=== PATIENT | male | born 1990 | race Caucasian/White ===

== ENCOUNTER 2019-07-29 22:22 | Emergency (ER) | payer OTHER ==
[~2019-07-29] VITALS: Ht 167.6 cm; Wt 63.3 kg
[2019-07-29] MEDS ORDERED: IV NORMAL SALINE 1,000ML 1,000 ML IV ONE (23:00)
--- NOTE | 2019-07-29 23:10 | PHYS DOC ---
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 Patient reports taking 3 Unisom sleep gels at approximately 1800 tonight to sleep. Patient denies any self-harm ideation or attempt. Denies any homicidal ideation. Denies any other coingestants. Patient normally takes one to one and a half Unisom tablets and lately they have not been working. Patient reports seeing "invisible snakes" along the wall after taking the Unisom sleep gels.[] Review of Systems Review of Systems Constitutional: Denies fever or chills [] Eyes: Denies change in visual acuity, redness, or eye pain [] HENT: Denies nasal congestion or sore throat [] Respiratory: Denies cough or shortness of breath [] Cardiovascular: No chest pain or palpitations[] GI: Denies abdominal pain, nausea, vomiting, bloody stools or diarrhea [] : Denies dysuria or hematuria [] Musculoskeletal: Denies back pain or joint pain [] Integument: Denies rash or skin lesions [] Neurologic: Denies headache, focal weakness or sensory changes [] Endocrine: Denies polyuria or polydipsia [] All other systems were reviewed and found to be within normal limits, except as documented in this note. Current Medications Current Medications Current Medications Medications (Trade) Dose Ordered Sig/[facility] Start Time Stop Time Status Last Admin Dose Admin Sodium Chloride 1,000 ml @ 1,000 mls/hr 1X ONCE 07/29/19 23:00 07/29/19 23:59 UNV Physical Exam Physical Exam Constitutional: Well developed, well nourished, no acute distress, non-toxic appearance. [] HENT: Normocephalic, atraumatic, bilateral external ears normal, oropharynx moist, no oral exudates, nose normal. [] Eyes: PERRLA, EOMI, conjunctiva normal, no discharge. No mydriasis [] Neck: Normal range of motion, no tenderness, supple, no stridor. [] Cardiovascular:Heart rate is tachycardic with a regular rhythm, no murmur [] Lungs & Thorax: Bilateral breath sounds clear to auscultation [] Abdomen: Bowel sounds normal, soft, no tenderness, no masses, no pulsatile masses. [] Skin: Warm, dry, no erythema, no rash. [] Back: No tenderness, no CVA tenderness. [] Extremities: No tenderness, no cyanosis, no clubbing, ROM intact, no edema. [] Neurologic: Alert and oriented X 3, normal motor function, normal sensory function, no focal deficits noted. He has a generalized body tremor which does not affect his ability to move all 4 extremities. [] Psychologic: Affect normal, judgement normal, mood normal. [] EKG EKG EKG shows a sinus tachycardia at 119 bpm, normal axis, QRS at 96 ms, QTC of 440 ms. Interpreted by me at 2321[] Radiology/Procedures Radiology/Procedures Verbal chest x-ray shows no evidence of an infiltrate, no effusion, no pneumothorax[] Course & Med Decision Making Course & Med Decision Making Pertinent Labs and Imaging studies reviewed. (See chart for details) ED course and medical decision making: Patient arrived, was placed in bed, and tolerated exam well. Consultation was made with poison control who agree that this does not appear to be a life-threatening overdose of the Unisom sleep gel which contains doxylamine. Unfortunately the half-life is tender 12 hours. The recommendation was for hydration either orally or through the IV. Additionally some mild benzodiazepines for the agitation/hallucination. They agreed with the laboratory testing that was ordered. Since this was not a overdose for self- harm, aspirin and acetaminophen levels were not obtained. His heart rate improved with IV fluids. Findings were discussed with patient who voiced understanding. All questions were answered. He was discharged in improved condition. [] Dragon Disclaimer Dragon Disclaimer This electronic medical record was generated, in whole or in part, using a voice recognition dictation system. Departure Departure: Impression: Primary Impression: Anticholinergic syndrome Disposition: HOME, SELF-CARE Condition: IMPROVED Referrals: JORGE LUIS CARMEN PA-C (PCP) Follow-up tomorrow Patient Instructions: Nontoxic Ingestion Additional Instructions: Follow-up with sick call tomorrow. Use medications only as prescribed. Return to the ER if worsening discomfort or any other concerns. Problem Qualifiers Primary Impression: Anticholinergic syndrome Encounter type: initial encounter Injury intent: accidental or unintentional Qualified Codes: T44.3X1A - Poisoning by other parasympatholytics [anticholinergics and antimuscarinics] and spasmolytics, accidental (unintentional), initial encounter AMARIS CRANE DO Jul 29, 2019 23:10
--- NOTE | 2019-07-29 23:22 | EKG ---
[address] [address] Test Date: 2019-07-29 Test Time: 23:22:40 Pat Name: CAREY ALVARADO Department: Room: Gender: M F[employer] Planter: : 1990 Requested By: AMARIS CRANE Order Number: [id number] Reading MD: Measurements Intervals [place] Rate: 119 P: 24 UT: 156 QRS: 36 QRSD: 96 T: 14 QT: 308 QTc: 440 Interpretive Statements SINUS TACHYCARDIA OTHERWISE NORMAL ECG RI6.01 No previous ECG available for comparison
[2019-07-29 23:25] LABS: BASO % 0 % (0-3); EOS % 0 % (0-3); HEMATOCRIT 46.4 % (39.0-53.0); HEMOGLOBIN 15.5 g/dL (13.0-17.5); LYMPH # 1.1 x10^3/uL (1.0-4.8); LYMPH % 7 % (24-48); MEAN CORPUSCULAR HEMOGLOBIN 31 pg (25-35); MEAN CORPUSCULAR HGB CONC 33 g/dL (31-37); MEAN CORPUSCULAR VOLUME 92 fL (79-100); MONO # 1.1 x10^3/uL (0.0-1.1); MONO % 7 % (0-9); NEUT # 13.4 x10^3uL (1.8-7.7); NEUT % 86 % (31-73); PLATELET COUNT 254 x10^3/uL (140-400); RED BLOOD COUNT 5.05 x10^6/uL (4.30-5.70); RED CELL DISTRIBUTION WIDTH 13.2 % (11.5-14.5); WHITE BLOOD COUNT 15.5 x10^3/uL (4.0-11.0)
[2019-07-29 23:40] LABS: AMPHETAMINE/METHAMPHETAMINE NEG (NEG); BACTERIA,URINE 0 /HPF (0-FEW); BARBITURATES NEG (NEG); BENZODIAZEPINES NEG (NEG); BILIRUBIN,URINE NEG (NEG); CANNABINOIDS NEG (NEG); CLARITY,URINE CLEAR; COCAINE NEG (NEG); COLOR,URINE YELLOW; GLUCOSE,URINE NEG (NEG); METHADONE NEG (NEG); NITRITE,URINE NEG (NEG); OPIATES NEG (NEG); PHENCYCLIDINE NEG (NEG); RBC,URINE 0 /HPF (0-2); SQUAMOUS EPITHELIAL CELL,UR OCC /LPF; UROBILINOGEN,URINE 0.2 mg/dL (0.2 mg/dL)
[2019-07-29 23:41] LABS: HYALINE CASTS, URINE OCC /HPF
[2019-07-29 23:47] LABS: ALBUMIN 4.6 g/dL (3.4-5.0); ALBUMIN/GLOBULIN RATIO 1.3 (1.0-1.7); CALCIUM 9.6 mg/dL (8.5-10.1); CREATININE 1.1 mg/dL (0.7-1.3); GFR 80.9; POTASSIUM 4.8 mmol/L (3.5-5.1); TOTAL BILIRUBIN 0.6 mg/dL (0.2-1.0); TOTAL PROTEIN 8.2 g/dL (6.4-8.2)
[2019-07-30] LABS: % BANDS 4 % (0-9); % LYMPHS 4 % (24-48); % MONOS 4 % (0-10); % SEGS 88 % (35-66)
[2019-07-30 00:01] LABS: PLT ESTIMATE ADEQUATE (ADEQUATE)
[2019-07-30] MEDS ORDERED: IV NORMAL SALINE 1,000ML 1,000 ML IV ONE (00:15)
--- NOTE | 2019-07-30 01:43 | RAD ---
Study: PORTABLE CHEST 1V Indication: Altered mental status. Comparison: None. Findings: Unremarkable cardiomediastinal silhouette and hilar structures. No lobar consolidation, pleural effusion or pneumothorax. Impression: No acute radiographic abnormality of the chest. Electronically signed by: TIMI ACOSTA MD (07/30/2019 1:39 AM) [facility]
[2019-07-30 02:08] VITALS: BP 145/85
== END 2019-07-30 02:08 | disposition home or self-care (01) ==
LOC: ER 22:22
DX: T45.0X1A Poisoning by antiallergic and antiemetic drugs, accidental (unintentional), initial encounter (principal); R41.82 Altered mental status, unspecified; G47.00 Insomnia, unspecified; Y92.89 Other specified places as the place of occurrence of the external cause
CPT/HCPCS: 36415; 71045; 80053; 80307; 81001; 82550; 83735; 83880; 85007; 85025; 85610; 85730; 93005; 96361; 96374; 99285; G0480; J2060; J7030